=== PATIENT | male | born 1935 | race Asian ===

== ENCOUNTER 2016-11-23 19:50 | Emergency (ER) | payer MEDICARE, MEDICAID ==
[~2016-11-23] VITALS: Ht 172.7 cm; Wt 63.5 kg
[2016-11-23] MEDS ORDERED: CRES20TA PO (20:04)
[2016-11-23] MEDS ORDERED: DUTA1CAP PO (20:04)
[2016-11-23] MEDS ORDERED: ASPI81TA85 PO (20:04)
[2016-11-23] MEDS ORDERED: DOXA1TAB72 PO (20:04)
[2016-11-23 20:31] LABS: EOS # 0.1 K/mm3 (0.0-0.50); EOS % 0.5 % (0.0-3.0); LARGE UNSTAINED CELL # 0.2 K/mm3 (0.0-0.4); LARGE UNSTAINED CELL % 0.6 % (0.0-4.0); LYMPH # 1.2 K/mm3 (1.5-4.5); LYMPH % 4.4 % (24.0-44.0); MEAN CORPUSCULAR HEMOGLOBIN 30.7 pg (27.0-33.0); MONO # 0.9 K/mm3 (0.0-0.8); MONO % 3.4 % (0.0-5.0); NEUTROPHILS # 24.4 K/mm3 (1.8-7.7); NEUTROPHILS % 91.1 % (36.0-66.0); PLATELET COUNT, AUTOMATED 183 k/mm3 (150-450); RED CELL DISTRIBUTION WIDTH 13.3 % (11.5-14.5); WHITE BLOOD COUNT 26.7 K/mm3 (4.0-10.0)
[2016-11-23 20:34] LABS: INR 1.07
--- NOTE | 2016-11-23 21:00 | REPUSA ---
CT of the head Clinical history: altered mental status. Technique: Multiple axial CT images were obtained through the head without administration of contrast . Comparison: None. Findings: The ventricles and sulci are symmetric bilaterally. There is no evidence of acute hemorrhag e or infarct. There is no midline shift, mass effect, or extra-axial fluid collection. The osseous st ructures are unremarkable. The visualized paranasal sinuses and mastoid air cells are clear. Impression: Negative study.
[2016-11-23 21:07] LABS: ALBUMIN 3.2 GM/DL (3.2-5.2); ALKALINE PHOSPHATASE 67 U/L (45-117); ALT/SGPT 20 U/L (12-78); ANION GAP 7 MEQ/L (8-16); AST/SGOT 21 U/L (15-37); BILIRUBIN,DIRECT 0.2 MG/DL (0.0-0.2); BILIRUBIN,TOTAL 0.7 MG/DL (0.2-1.0); BLOOD UREA NITROGEN 18 MG/DL (7-18); CALCIUM LEVEL 8.2 MG/DL (8.8-10.2); CARBON DIOXIDE LEVEL 28 MEQ/L (21-32); CHLORIDE LEVEL 105 MEQ/L (98-107); FREE T4 1.16 NG/DL (0.76-1.46); GLOMERULAR FILTRATION RATE > 60.0 (>35); GLUCOSE, FASTING 102 MG/DL (83-110); POTASSIUM SERUM 4.2 MEQ/L (3.5-5.1); SODIUM LEVEL 140 MEQ/L (136-145); TOTAL PROTEIN 6.4 GM/DL (6.4-8.2)
--- NOTE | 2016-11-23 21:38 | REP ---
Clinical: Chest pain . Comparison: None . Findings: The mediastinum and cardiac silhouette are stable and within normal limits for portable technique. The lung sapp are clear without acute consolidation, effusion, or pneumothorax. Skeletal structures are intact. Impression: Normal portable chest x-ray Signed by Alex Wayne MD 11/23/2016 09:30 P
--- NOTE | 2016-11-23 21:45 | ECGEPIP ---
Stationary ECG Study [facility] - ED Test Date: 2016-11-23 Pat Name: EBER CLARK Department: Room: - Gender: M Technical Services Rep: BrownB: [id number] Requested By: KEKE Conway Order Number: [id number] Reading MD: Yoel Harris Measurements Intervals [place] Rate: 77 P: 62 [place]: 164 QRS: 42 QRSD: 93 T: 62 QT: 409 QTc: 463 Interpretive Statements SINUS RHYTHM POSSIBLE INFERIOR MYOCARDIAL INFARCTION, OF INDETERMINATE AGE WITH POSTERIOR EXTENSION NO PRIORS Electronically Signed On 11-23-2016 21:44:54 EDT by Yoel Harris
[2016-11-23] MEDS ORDERED: cefTRIAXone SOD 1 GM in D5W MINI-BAG PLUS 50 ML IV ONE (22:00)
[2016-11-23] MEDS ORDERED: ISOVUE-370 76% 100ML VIAL (Q9967) As Ordered ONE (22:03)
--- NOTE | 2016-11-23 22:30 | REPUSA ---
CT angiogram of the chest Clinical statement: Chest pain and shortness of breath. Technique: Multiple axial CT images were obtained from the thoracic inlet through the upper abdomen a fter a bolus administration of nonionic intravenous contrast. Coronal and sagittal reconstructions we re also obtained. Comparison: None. Findings: The pulmonary arteries are well-opacified with contrast, with no intraluminal filling defec ts to suggest embolism. The thoracic aorta is unremarkable. Thyroid gland is within normal limits. Th ere is no thoracic lymphadenopathy. There are no pericardial or pleural effusions. There is a spicula jelena nodule in the posterior left upper lobe measuring 1.7 x 1.4 cm. There is a spiculated nodule in t he posterior right lung base measuring 1.9 x 1.4 cm. There is a spiculated nodule in the right lung a pex measuring 0.9 x 0.7 cm. A second nodule in the posterior right upper lobe measures 0.7 x 0.5 cm. Limited imaging of the upper abdomen is unremarkable. There is a simple cyst in the medial upper left kidney. There are no suspicious osseous lesions. Impression: 1. No evidence of pulmonary embolism. 2. Numerous large pulmonary nodules bilaterally. Biopsy should be considered.
--- NOTE | 2016-11-23 23:00 | REPUSA ---
Clinical history: Pain, swelling. Findings: The common femoral, superficial femoral, popliteal, and other deep venous structures compre ss normally and demonstrate normal color Doppler flow. Normal venous waveforms with augmentation are seen. Impression: No evidence of deep vein thrombosis in the femoral popliteal venous system.
[2016-11-23] MEDS ORDERED: NITROGLYCERIN 0.4 MG SUBL TABLET SL PRN (23:15)
[2016-11-23] MEDS ORDERED: ASPIRIN 81 MG CHEW TABLET PO ONE (23:15)
[2016-11-23] MEDS ORDERED: CLOPIDOGREL 300 MG TAB (PLAVIX) PO STA (23:26)
[2016-11-23] MEDS ORDERED: METOPROLOL TART 25 MG TABLET PO ONE (23:30)
[2016-11-23] MEDS ORDERED: HEPARIN DRIP 25,000 UNITS in APPROPRIATE DILUENT 1 EA IV SCH (23:34)
[2016-11-23] MEDS ORDERED: HEPARIN SOD (PORCINE) 5000 UNITS/ML VIAL IV ONE (23:45)
[2016-11-24 00:19] VITALS: BP 112/57
== END 2016-11-24 00:20 | disposition short-term general hospital (02) ==
LOC: EDBD 19:50 → M ED 21:06
DX: I21.4 Non-ST elevation (NSTEMI) myocardial infarction (principal); N39.0 Urinary tract infection, site not specified; R91.8 Other nonspecific abnormal finding of lung field; N40.1 Benign prostatic hyperplasia with lower urinary tract symptoms; E78.5 Hyperlipidemia, unspecified; Z79.82 Long term (current) use of aspirin; Z79.899 Other long term (current) drug therapy
CPT/HCPCS: 36415; 70450; 71010; 71275; 80048; 80076; 81001; 82550; 82553; 83690; 84439; 84443; 84484; 85025; 85379; 85610; 85730; 87040; 87088; 87186; 93005; 93041; 93970; 94760; 96374; 96375; 99285; J0696; Q9967

== ENCOUNTER 2017-09-20 09:37 | Emergency (ER) | payer MEDICARE, MEDICAID ==
[2017-09-20] MEDS: LIDOCAINE 2% 5ML JELLY UROJET TOP ×2 (10:30)
[2017-09-20 11:01] LABS: BASO % 0.2 % (0.0-1.0); EOS % 0.2 % (0.0-3.0); HEMATOCRIT 36.4 % (42.0-52.0); HEMOGLOBIN 12.2 g/dl (14.0-18.0); IMMATURE GRANULOCYTE % 0.4 % (0-3.0); LYMPH # 1.4 10^3/uL (1.5-4.5); LYMPH % 27.7 % (24.0-44.0); MEAN CORPUSCULAR HEMOGLOBIN 28.6 pg (27.0-33.0); MEAN CORPUSCULAR HGB CONC 33.5 g/dl (32.0-36.5); MEAN CORPUSCULAR VOLUME 85.4 fl (80.0-96.0); MONO # 0.3 10^3/uL (0.0-0.8); MONO % 6.3 % (0.0-5.0); NEUTROPHILS # 3.2 10^3/uL (1.8-7.7); NEUTROPHILS % 65.2 % (36.0-66.0); PLATELET COUNT, AUTOMATED 214 10^3/uL (150-450); RED BLOOD COUNT 4.26 10^6/uL (4.30-6.10); RED CELL DISTRIBUTION WIDTH 13.2 % (11.5-14.5); WHITE BLOOD COUNT 4.9 10^3/uL (4.0-10.0)
[2017-09-20 11:13] LABS: APPEARANCE, URINE CLEAR (CLEAR); BACTERIA, URINE AUTO 1+ (NEGATIVE); BILIRUBIN, URINE AUTO NEGATIVE (NEGATIVE); BLOOD, URINE BLOOD 3+ (NEGATIVE); COLOR, URINE STRAW (YELLOW); GLUCOSE, URINE (UA) AUTO NEGATIVE (NEGATIVE); KETONE, URINE AUTO TRACE mg/dL (NEGATIVE); LEUKOCYTE ESTERASE, URINE AUTO NEGATIVE (NEGATIVE); MUCUS, URINE SMALL (NEGATIVE); NITRITE, URINE AUTO NEGATIVE (NEGATIVE); PROTEIN, URINE AUTO NEGATIVE (NEGATIVE); RBC, URINE AUTO 9 /HPF (0-3); SPECIFIC GRAVITY URINE AUTO 1.005 (1.002-1.035); SQUAMOUS EPITHELIAL CELL UR AU 0 /HPF (0-6); UROBILINOGEN, URINE AUTO 0.2 mg/dL (0.0-2.0); WBC, URINE AUTO 1 /HPF (0-3)
[2017-09-20 11:21] LABS: ALBUMIN 3.2 GM/DL (3.2-5.2); ALBUMIN/GLOBULIN RATIO 0.82 (1.00-1.93); ALKALINE PHOSPHATASE 81 U/L (45-117); ALT/SGPT 20 U/L (12-78); ANION GAP 9 MEQ/L (8-16); AST/SGOT 25 U/L (7-37); BILIRUBIN,DIRECT 0.2 MG/DL (0.0-0.2); BILIRUBIN,TOTAL 0.4 MG/DL (0.2-1.0); BLOOD UREA NITROGEN 9 MG/DL (7-18); CALCIUM LEVEL 8.5 MG/DL (8.8-10.2); CARBON DIOXIDE LEVEL 28 MEQ/L (21-32); CHLORIDE LEVEL 97 MEQ/L (98-107); CREATININE FOR GFR 0.79 MG/DL (0.70-1.30); GLOMERULAR FILTRATION RATE > 60.0 (>35); GLUCOSE, FASTING 113 MG/DL (70-100); POTASSIUM SERUM 4.1 MEQ/L (3.5-5.1); SODIUM LEVEL 134 MEQ/L (136-145); TOTAL PROTEIN 7.1 GM/DL (6.4-8.2)
[2017-09-21] MEDS ORDERED: LIDOCAINE 4% INJ 5 ML AMP INH ×2 (06:00)
== END 2017-09-20 12:21 | disposition home or self-care (01) ==
LOC: M ED 09:37
DX: N40.1 Benign prostatic hyperplasia with lower urinary tract symptoms (principal); R33.9 Retention of urine, unspecified; I10 Essential (primary) hypertension; E78.70 Disorder of bile acid and cholesterol metabolism, unspecified; Z79.899 Other long term (current) drug therapy
CPT/HCPCS: 80076

== ENCOUNTER → 2018-02-21 | Outpatient (REF) | payer MEDICARE, MEDICAID ==
[2018-02-21 12:43] LABS: PROSTATIC SPECIFIC AG MONITOR 3.37 NG/ML (< 4.0)
== END ==
LOC: M LABDRAW1 11:05
DX: N40.1 Benign prostatic hyperplasia with lower urinary tract symptoms (principal)
CPT/HCPCS: 84153

== ENCOUNTER → 2018-05-03 | Outpatient (REF) | payer MEDICARE, MEDICAID | LOC: M SFHCPLAZ 13:56 | DX: Z01.818 Encounter for other preprocedural examination (principal) ==

== ENCOUNTER → 2018-05-03 | Outpatient (REF) | payer MEDICARE, MEDICAID ==
[2018-05-03 17:57] LABS: BASO % 0.3 % (0.0-1.0); EOS # 0.1 10^3/uL (0.0-0.50); EOS % 1.4 % (0.0-3.0); HEMATOCRIT 34.6 % (42.0-52.0); HEMOGLOBIN 11.3 g/dl (13.5-17.5); IMMATURE GRANULOCYTE % 0.2 % (0-3.0); LYMPH # 2.1 10^3/uL (1.5-4.5); LYMPH % 31.2 % (24.0-44.0); MEAN CORPUSCULAR HEMOGLOBIN 29.9 pg (27.0-33.0); MEAN CORPUSCULAR HGB CONC 32.7 g/dl (32.0-36.5); MEAN CORPUSCULAR VOLUME 91.5 fl (80.0-96.0); MONO # 0.6 10^3/uL (0.0-0.8); MONO % 8.8 % (0.0-5.0); NEUTROPHILS # 3.8 10^3/uL (1.8-7.7); NEUTROPHILS % 58.1 % (36.0-66.0); PLATELET COUNT, AUTOMATED 179 10^3/uL (150-450); RED BLOOD COUNT 3.78 10^6/uL (4.30-6.10); RED CELL DISTRIBUTION WIDTH 14.2 % (11.5-14.5); WHITE BLOOD COUNT 6.6 10^3/uL (4.0-10.0)
[2018-05-03 18:02] LABS: APPEARANCE, URINE CLEAR (CLEAR); BACTERIA, URINE AUTO NEGATIVE (NEGATIVE); BILIRUBIN, URINE AUTO NEGATIVE (NEGATIVE); BLOOD, URINE BLOOD 1+ (NEGATIVE); COLOR, URINE YELLOW (YELLOW); GLUCOSE, URINE (UA) AUTO NEGATIVE (NEGATIVE); KETONE, URINE AUTO NEGATIVE (NEGATIVE); LEUKOCYTE ESTERASE, URINE AUTO NEGATIVE (NEGATIVE); MUCUS, URINE SMALL (NEGATIVE); NITRITE, URINE AUTO NEGATIVE (NEGATIVE); PROTEIN, URINE AUTO NEGATIVE (NEGATIVE); RBC, URINE AUTO 2 /HPF (0-3); SPECIFIC GRAVITY URINE AUTO 1.017 (1.002-1.035); SQUAMOUS EPITHELIAL CELL UR AU 0 /HPF (0-6); UROBILINOGEN, URINE AUTO 0.2 mg/dL (0.0-2.0); WBC, URINE AUTO 0 /HPF (0-3)
[2018-05-03 18:03] LABS: ANION GAP 5 MEQ/L (8-16); BLOOD UREA NITROGEN 23 MG/DL (7-18); CALCIUM LEVEL 8.1 MG/DL (8.8-10.2); CARBON DIOXIDE LEVEL 29 MEQ/L (21-32); CHLORIDE LEVEL 106 MEQ/L (98-107); GLOMERULAR FILTRATION RATE > 60.0 (>35); GLUCOSE, FASTING 84 MG/DL (70-100); POTASSIUM SERUM 4.4 MEQ/L (3.5-5.1); SODIUM LEVEL 140 MEQ/L (136-145)
== END ==
LOC: M SFHCPLAZ 17:16
DX: Z01.818 Encounter for other preprocedural examination (principal)
CPT/HCPCS: 80048

== ENCOUNTER → 2018-05-20 | Outpatient (REF) | payer MEDICARE, MEDICAID ==
[2018-05-20 16:11] LABS: ALBUMIN 3.2 GM/DL (3.2-5.2); FERRITIN 64 NG/ML (26-388); IRON (FE) 56 UG/DL (65-175)
[2018-05-20 16:18] LABS: VITAMIN B12 LEVEL 553 PG/ML
[2018-05-22 08:06] LABS: TRANSFERRIN 212 mg/dL (200-370)
== END ==
LOC: M LABDRAW1 15:30
DX: D64.9 Anemia, unspecified (principal)
CPT/HCPCS: 82040

== ENCOUNTER → 2018-10-12 | Outpatient (REF) | payer MEDICARE, MEDICAID ==
[~2018-10-12] MED LIST: ACET-716 PO; ASPI81TA85 PO; CRES20TA2 PO; DOXA1TAB67 PO; DUTA1CAP PO; MILK120011 PO; VALA1TAB2 PO; [UNRECOGNIZED DRUG - OTHER]
[2018-10-12 13:10] LABS: CHOLESTEROL RISK RATIO 3.417 (<5)
[2018-10-13 08:06] LABS: LDL DIRECT 187 mg/dL (0-99)
== END ==
LOC: M LABDRAW1 12:07
PROVIDERS: ATTEND Internal Medicine Cardiovascular Disease
DX: E78.5 Hyperlipidemia, unspecified (principal); I25.10 Atherosclerotic heart disease of native coronary artery without angina pectoris; I25.2 Old myocardial infarction

== ENCOUNTER → 2018-12-02 | Outpatient (REF) | payer MEDICARE, MEDICAID ==
[2018-12-02 12:48] LABS: HEMATOCRIT 38.9 % (42.0-52.0); HEMOGLOBIN 12.6 g/dl (13.5-17.5); MEAN CORPUSCULAR HEMOGLOBIN 30.5 pg (27.0-33.0); MEAN CORPUSCULAR HGB CONC 32.4 g/dl (32.0-36.5); MEAN CORPUSCULAR VOLUME 94.2 fl (80.0-96.0); PLATELET COUNT, AUTOMATED 179 10^3/uL (150-450); RED BLOOD COUNT 4.13 10^6/uL (4.30-6.10); WHITE BLOOD COUNT 5.6 10^3/uL (4.0-10.0)
[2018-12-02 13:00] LABS: ALBUMIN 3.3 GM/DL (3.2-5.2); ALT/SGPT 23 U/L (12-78); BILIRUBIN,DIRECT 0.1 MG/DL (0.0-0.2); BILIRUBIN,TOTAL 0.3 MG/DL (0.2-1.0); BLOOD UREA NITROGEN 19 MG/DL (7-18); CALCIUM LEVEL 8.2 MG/DL (8.8-10.2); CARBON DIOXIDE LEVEL 30 MEQ/L (21-32); CHLORIDE LEVEL 107 MEQ/L (98-107); CHOLESTEROL LEVEL 151 MG/DL (<200); CHOLESTEROL RISK RATIO 2.188 (<5); CREATININE FOR GFR 1.02 MG/DL (0.70-1.30); GLOMERULAR FILTRATION RATE > 60.0 (>35); GLUCOSE, FASTING 89 MG/DL (70-100); HDL CHOLESTEROL 69 MG/DL (>40); LDL CHOLESTEROL 70 MG/DL (<100); NON-HDL-C 82 MG/DL; POTASSIUM SERUM 4.3 MEQ/L (3.5-5.1); SODIUM LEVEL 142 MEQ/L (136-145); TOTAL PROTEIN 6.6 GM/DL (6.4-8.2); TRIGLYCERIDES LEVEL 60 MG/DL (<150)
== END ==
LOC: M LABDRAW1 11:56
PROVIDERS: ATTEND Student in an Organized Health Care Education/Training Program
DX: E78.5 Hyperlipidemia, unspecified (principal)

== ENCOUNTER → 2019-05-09 | Outpatient (REF) | payer MEDICARE, MEDICAID ==
[2019-05-09 13:06] LABS: CHOLESTEROL RISK RATIO 2.108 (<5)
== END ==
LOC: M LABDRAW1 11:57
PROVIDERS: ATTEND Internal Medicine Cardiovascular Disease
DX: I25.10 Atherosclerotic heart disease of native coronary artery without angina pectoris (principal); E78.5 Hyperlipidemia, unspecified; R07.9 Chest pain, unspecified

== ENCOUNTER → 2019-06-22 | Outpatient (REF) | payer MEDICARE, MEDICAID ==
[~2019-06-22] MED LIST changes: -VALA1TAB2 PO; +VALA1TAB64 PO
[2019-06-23 12:00] LABS: HEPATITIS B SURFACE ANTIBODY POSITIVE (POSITIVE); HEPATITIS B SURFACE ANTIGEN NEGATIVE (NEGATIVE)
== END ==
LOC: M LABDRAW1 10:48
PROVIDERS: ATTEND Student in an Organized Health Care Education/Training Program
DX: Z11.59 Encounter for screening for other viral diseases (principal)
CPT/HCPCS: 36415; 86704; 86706; 87340; G0472

== ENCOUNTER → 2020-11-21 | Outpatient (CLI) | payer MEDICARE, MEDICAID ==
[~2020-11-21] MED LIST changes: -ASPI81TA85 PO; +ASPI81TA86 PO; -DUTA1CAP PO; +DUTA1CAP2 PO; +VALA1TAB5 PO; -VALA1TAB64 PO
[2020-11-21 12:28] LABS: HEMATOCRIT 39.1 % (42.0-52.0); HEMOGLOBIN 12.4 g/dl (13.5-17.5); MEAN CORPUSCULAR HEMOGLOBIN 29.7 pg (27.0-33.0); MEAN CORPUSCULAR HGB CONC 31.7 g/dl (32.0-36.5); MEAN CORPUSCULAR VOLUME 93.5 fl (80.0-96.0); PLATELET COUNT, AUTOMATED 217 10^3/uL (150-450); RED BLOOD COUNT 4.18 10^6/uL (4.30-6.10); WHITE BLOOD COUNT 5.5 10^3/uL (4.0-10.0)
[2020-11-21 12:56] LABS: ALT/SGPT 22 U/L (12-78); BLOOD UREA NITROGEN 19 MG/DL (7-18); CALCIUM LEVEL 8.5 MG/DL (8.8-10.2); CARBON DIOXIDE LEVEL 30 MEQ/L (21-32); CHLORIDE LEVEL 108 MEQ/L (98-107); CHOLESTEROL LEVEL 157 MG/DL (<200); CHOLESTEROL RISK RATIO 2.415 (<5); CPK CREATINE PHOSPHOKINASE 108 U/L (39-308); CREATININE FOR GFR 1.11 MG/DL (0.70-1.30); GLOMERULAR FILTRATION RATE > 60.0 (>35); GLUCOSE, FASTING 82 MG/DL (70-100); HDL CHOLESTEROL 65 MG/DL (>40); LDL CHOLESTEROL 79 MG/DL (<100); NON-HDL-C 92 MG/DL; POTASSIUM SERUM 4.7 MEQ/L (3.5-5.1); SODIUM LEVEL 142 MEQ/L (136-145); TRIGLYCERIDES LEVEL 64 MG/DL (<150)
== END ==
LOC: M WUC 09:00
PROVIDERS: ATTEND Internal Medicine Cardiovascular Disease
DX: E78.5 Hyperlipidemia, unspecified (principal); I10 Essential (primary) hypertension

== ENCOUNTER → 2020-11-21 | Outpatient (CLI) | payer MEDICARE, MEDICAID ==
[2020-11-21 12:26] LABS: APPEARANCE, URINE HAZY (CLEAR); BACTERIA, URINE AUTO 1+ (NEGATIVE); BILIRUBIN, URINE AUTO NEGATIVE (NEGATIVE); BLOOD, URINE BLOOD 1+ (NEGATIVE); COLOR, URINE YELLOW (YELLOW); GLUCOSE, URINE (UA) AUTO NEGATIVE (NEGATIVE); KETONE, URINE AUTO NEGATIVE (NEGATIVE); LEUKOCYTE ESTERASE, URINE AUTO 3+ (NEGATIVE); MUCUS, URINE SMALL (NEGATIVE); NITRITE, URINE AUTO NEGATIVE (NEGATIVE); PROTEIN, URINE AUTO 1+ mg/dL (NEGATIVE); RBC, URINE AUTO 4 /HPF (0-3); SPECIFIC GRAVITY URINE AUTO 1.017 (1.002-1.035); SQUAMOUS EPITHELIAL CELL UR AU 1 /HPF (0-6); UROBILINOGEN, URINE AUTO 0.2 mg/dL (0.0-2.0); WBC, URINE AUTO 71 /HPF (0-3)
[2020-11-21 12:28] LABS: HEMATOCRIT 39.4 % (42.0-52.0); HEMOGLOBIN 12.5 g/dl (13.5-17.5); MEAN CORPUSCULAR HEMOGLOBIN 29.8 pg (27.0-33.0); MEAN CORPUSCULAR HGB CONC 31.7 g/dl (32.0-36.5); PLATELET COUNT, AUTOMATED 211 10^3/uL (150-450); RED BLOOD COUNT 4.19 10^6/uL (4.30-6.10); WHITE BLOOD COUNT 5.4 10^3/uL (4.0-10.0)
[2020-11-21 12:59] LABS: ALBUMIN 3.3 GM/DL (3.2-5.2); ALT/SGPT 23 U/L (12-78); BILIRUBIN,TOTAL 0.4 MG/DL (0.2-1.0); BLOOD UREA NITROGEN 20 MG/DL (7-18); CARBON DIOXIDE LEVEL 30 MEQ/L (21-32); CHLORIDE LEVEL 108 MEQ/L (98-107); CHOLESTEROL LEVEL 159 MG/DL (<200); CHOLESTEROL RISK RATIO 2.523 (<5); CREATININE FOR GFR 1.03 MG/DL (0.70-1.30); GLOMERULAR FILTRATION RATE > 60.0 (>35); GLUCOSE, FASTING 79 MG/DL (70-100); HDL CHOLESTEROL 63 MG/DL (>40); LDL CHOLESTEROL 83 MG/DL (<100); NON-HDL-C 96 MG/DL; POTASSIUM SERUM 4.6 MEQ/L (3.5-5.1); SODIUM LEVEL 141 MEQ/L (136-145); TOTAL PROTEIN 6.6 GM/DL (6.4-8.2); TRIGLYCERIDES LEVEL 64 MG/DL (<150)
[2020-11-21 14:01] LABS: HEMOGLOBIN A1c 5.8 %
== END ==
LOC: EEVIPCON 09:04 → M WUC 09:04
PROVIDERS: ATTEND Student in an Organized Health Care Education/Training Program
DX: R82.90 Unspecified abnormal findings in urine (principal); E78.5 Hyperlipidemia, unspecified; I10 Essential (primary) hypertension; Z79.899 Other long term (current) drug therapy

== ENCOUNTER → 2020-12-03 | Outpatient (CLI) | payer MEDICARE, MEDICAID ==
[2020-12-03 12:40] LABS: BASO % 0.3 % (0.0-1.0); EOS # 0.1 10^3/uL (0.0-0.5); EOS % 1.9 % (0.0-3.0); HEMOGLOBIN 12.7 g/dl (13.5-17.5); LYMPH # 2.3 10^3/uL (1.5-5.0); LYMPH % 35.6 % (24.0-44.0); MEAN CORPUSCULAR HEMOGLOBIN 29.7 pg (27.0-33.0); MEAN CORPUSCULAR HGB CONC 31.8 g/dl (32.0-36.5); MEAN CORPUSCULAR VOLUME 93.5 fl (80.0-96.0); MONO # 0.7 10^3/uL (0.0-0.8); MONO % 10.8 % (2.0-8.0); NEUTROPHILS # 3.3 10^3/uL (1.5-8.5); NEUTROPHILS % 51.2 % (36.0-66.0); PLATELET COUNT, AUTOMATED 237 10^3/uL (150-450); RED BLOOD COUNT 4.28 10^6/uL (4.30-6.10); WHITE BLOOD COUNT 6.5 10^3/uL (4.0-10.0)
[2020-12-03 13:19] LABS: PERCENT SATURATION 21.7 % (19.7-50.0)
== END ==
LOC: M WUC 10:13
PROVIDERS: ATTEND Family Medicine
DX: D50.9 Iron deficiency anemia, unspecified (principal)